=== PATIENT | female | born 1950 | race African-American/Black ===

== ENCOUNTER 2019-11-15 00:36 | Observation (INO) ==
[2019-11-15] MEDS ORDERED: ONDANSETRON 4 MG/2 ML VIAL IV STA (00:59)
[2019-11-15] MEDS ORDERED: PANTOPRAZOLE 40 MG VIAL IV STA (00:59)
[2019-11-15] MEDS ORDERED: METOPROLOL TARTRATE 25 MG TABLET PO STA (01:00)
[2019-11-15 01:06] LABS: Basophils % 0.4 % (0.0-0.8); Eosinophils # 0.1 10*3/uL (0.0-0.87); Eosinophils % 1.9 % (0.00-10.9); Hematocrit 33.5 VOL% (35.7-47.0); Hemoglobin 10.6 GM/DL (12.0-16.0); Immature Granulocytes % 0.3 %; Immature Granulocytes Absolute 0.02 #; Lymphocytes # 2.7 10*3/uL (1.4-4.0); Lymphocytes % 37.1 % (21.3-54.2); Mean Corpuscular HGB Conc 31.6 GM/DL (32-36); Mean Corpuscular Volume 87.7 FL (87-102); Mean Platelet Volume 10.9 FL (9.6-12.0); Monocytes % 11.7 % (1.7-12.7); Neutrophils % 48.6 % (38.7-73.9); Platelet Count 239 T/CUMM (130-400); Red Blood Count 3.82 MC/CUMM (3.8-5.5); Red Cell Distribution Width 13.7 % (9.3-17.3); White Blood Count 7.3 T/CUMM (4-12)
[2019-11-15 01:16] LABS: PT Patient Result 10.5 SECS (9.8-11.9)
[2019-11-15 01:27] LABS: Alanine Aminotransferase 21 U/L (13-56); Albumin 3.6 G/DL (3.4-5.0); Alkaline Phosphatase 97 U/L (45-117); Aspartate Amino Transferase 15 U/L (0-37); Bilirubin,Total < 0.39 MG/DL (0.2-1.0); Blood Urea Nitrogen 22 MG/DL (7-18); Calcium 9.1 MG/DL (8.5-10.1); Estimated Glom Filtration Rate 61 ML/MIN; Glucose 99 MG/DL (74-106); Osmolality,Calculated 285.1 MOS/KG (273-304); Total Protein 6.9 G/DL (6.4-8.3)
[2019-11-15] MEDS ORDERED: ONDANSETRON 4 MG/2 ML VIAL IV PRN (02:11)
[2019-11-15] MEDS ORDERED: DEXTROSE 50% 25 GM/50 ML VIAL IV PRN (02:11)
[2019-11-15] MEDS ORDERED: ACETAMINOPHEN 325 MG TABLET PO PRN (02:11)
[2019-11-15] MEDS ORDERED: GLUCAGON 1 MG VIAL IM PRN (02:11)
[2019-11-15 02:49] LABS: Band Neutrophils 3 % (0-10); Eosinophils 2 % (0-10); Lymphocytes 39 % (20-55); Platelet Estimate Normal; Reactive Lymphocytes Few; Segmented Neutrophils 46 % (50-85); Total Cells Counted 100
[2019-11-15 08:24] LABS: Basophils % 0.5 % (0.0-0.8); Eosinophils # 0.1 10*3/uL (0.0-0.87); Eosinophils % 1.5 % (0.00-10.9); Hematocrit 29.4 VOL% (35.7-47.0); Hemoglobin 9.1 GM/DL (12.0-16.0); Immature Granulocytes % 0.5 %; Immature Granulocytes Absolute 0.03 #; Lymphocytes # 2.4 10*3/uL (1.4-4.0); Lymphocytes % 36.2 % (21.3-54.2); Mean Platelet Volume 10.6 FL (9.6-12.0); Monocytes % 8.7 % (1.7-12.7); Neutrophils % 52.6 % (38.7-73.9); Platelet Count 206 T/CUMM (130-400); Red Blood Count 3.34 MC/CUMM (3.8-5.5); Red Cell Distribution Width 13.6 % (9.3-17.3); White Blood Count 6.6 T/CUMM (4-12)
[2019-11-15 08:52] LABS: Eosinophils 1 % (0-10); Lymphocytes 41 % (20-55); Platelet Estimate Adequate; Segmented Neutrophils 54 % (50-85); Total Cells Counted 100
[2019-11-15 08:53] LABS: Atypical Lymphocytes Few; Hypochromasia 1+; Microcytosis Slight; Ovalocytes Slight
[2019-11-15] MEDS: POLYETHYLENE GLYCOL POWDER 17 GM PACK PO SCH ×3 (10:10→19:59)
[2019-11-15] MEDS ORDERED: LORazepam 1 MG TABLET PO PRN (14:14)
[2019-11-15] MEDS: CETIRIZINE 10 MG TABLET PO SCH (16:45)
[2019-11-15] MEDS: carvediloL 25 MG TABLET PO SCH (23:56)
[2019-11-16 05:35] LABS: Basophils % 0.4 % (0.0-0.8); Eosinophils % 0.5 % (0.00-10.9); Hematocrit 23.1 VOL% (35.7-47.0); Immature Granulocytes % 0.6 %; Immature Granulocytes Absolute 0.05 #; Lymphocytes # 1.7 10*3/uL (1.4-4.0); Mean Corpuscular HGB Conc 31.2 GM/DL (32-36); Mean Corpuscular Volume 89.5 FL (87-102); Mean Platelet Volume 11.3 FL (9.6-12.0); Monocytes % 6.1 % (1.7-12.7); Neutrophils % 70.4 % (38.7-73.9); Platelet Count 178 T/CUMM (130-400); Red Blood Count 2.58 MC/CUMM (3.8-5.5); Red Cell Distribution Width 13.7 % (9.3-17.3); White Blood Count 7.9 T/CUMM (4-12)
[2019-11-16 05:36] LABS: Hemoglobin 7.2 GM/DL (12.0-16.0)
[2019-11-16] MEDS ORDERED: SODIUM CHLORIDE 0.9% 1,000 ML IV PRN ×3 (05:55→14:55)
[2019-11-16 06:22] LABS: Lymphocytes 17 % (20-55); Platelet Estimate Normal; Segmented Neutrophils 81 % (50-85)
[2019-11-16 06:23] LABS: Hypochromasia 1+; Total Cells Counted 100
[2019-11-16] MEDS: PANTOPRAZOLE 40 MG VIAL IV SCH (19:18)
[2019-11-16] MEDS: POLYETHYLENE GLYCOL POWDER 17 GM PACK PO SCH ×2 (19:19→21:18)
[2019-11-16] MEDS: carvediloL 25 MG TABLET PO SCH ×2 (19:20→21:18)
[2019-11-16] MEDS: LEVOTHYROXINE 100 MCG TABLET PO SCH (19:20)
[2019-11-16] MEDS: CETIRIZINE 10 MG TABLET PO SCH (19:22)
[2019-11-16] MEDS ORDERED: carvediloL 25 MG TABLET PO SCH (23:00)
[2019-11-17] MEDS: POLYETHYLENE GLYCOL POWDER 17 GM PACK PO SCH ×2 (00:26→14:08)
[2019-11-17 01:29] LABS: Basophils % 0.3 % (0.0-0.8); Eosinophils # 0.1 10*3/uL (0.0-0.87); Eosinophils % 1.5 % (0.00-10.9); Hematocrit 26.5 VOL% (35.7-47.0); Hemoglobin 8.4 GM/DL (12.0-16.0); Immature Granulocytes % 0.7 %; Immature Granulocytes Absolute 0.05 #; Lymphocytes % 41.6 % (21.3-54.2); Mean Corpuscular HGB Conc 31.7 GM/DL (32-36); Mean Corpuscular Volume 88.9 FL (87-102); Mean Platelet Volume 10.5 FL (9.6-12.0); Monocytes % 7.9 % (1.7-12.7); Platelet Count 156 T/CUMM (130-400); Red Blood Count 2.98 MC/CUMM (3.8-5.5); Red Cell Distribution Width 14.1 % (9.3-17.3); White Blood Count 7.1 T/CUMM (4-12)
[2019-11-17 02:19] LABS: Hypochromasia 2+; Platelet Estimate Normal
[2019-11-17] MEDS: LEVOTHYROXINE 100 MCG TABLET PO SCH (06:09)
[2019-11-17 11:39] VITALS: BP 148/63
[2019-11-17] MEDS: PANTOPRAZOLE 40 MG VIAL IV SCH ×2 (14:08→14:17)
[2019-11-17] MEDS: carvediloL 25 MG TABLET PO SCH (14:09)
== END 2019-11-17 14:23 | disposition home or self-care (01) ==
LOC: N.ED 00:36 → N.EDINP 00:36 → SUATTDRO 02:11 → N.3E 03:03
PROVIDERS: ADMIT Internal Medicine; ATTEND Emergency Medicine